=== PATIENT | male | born 1990 | race Caucasian/White ===

== ENCOUNTER 2017-01-24 14:46 | Emergency (ER) | payer OTHER ==
[2017-01-24 14:52] VITALS: BP 127/78; PULSE 75; RESP 16; TEMP 98.1; O2SAT 97
--- NOTE | 2017-01-24 15:12 | EDPHY ---
H & P Stated Complaint: Sent from for eval puncture to L wrist Time Seen by Provider: 01/24/17 15:11 HPI/ROS: CHIEF COMPLAINT: Left wrist laceration HISTORY OF PRESENT ILLNESS: The patient presents to the ED after he sustained a 1 cm laceration to his left wrist. The patient was initially seen in urgent care and referred to the ED secondary to ongoing bleeding. The patient denies any complaints of acute numbness or weakness. He denies any decreased range of motion in his left hand. The patient reports his tetanus shot is up today. REVIEW OF SYSTEMS: A comprehensive 10 point review of systems is otherwise negative aside from elements mentioned in the history of present illness. Source: Patient Exam Limitations: No limitations - Personal History Current Tetanus Diphtheria and Acellular Pertussis (TDAP): Yes - Medical/Surgical History Other PMH: neg - Family History Significant Family History: No pertinent family hx - Social History Smoking Status: Current every day smoker - Physical Exam Exam: General Appearance: Alert, no distress Skin: 1 cm laceration noted to the dorsal aspect of the left forearm Extremities: Normal range of motion noted throughout the left hand, Neurological: No sensory deficit appreciated in the left hand Constitutional: Initial Vital Signs Temperature (C) 36.7 C 01/24/17 14:48 Heart Rate 75 01/24/17 14:48 Respiratory Rate 16 01/24/17 14:48 Blood Pressure 127/78 H 01/24/17 14:48 O2 Sat (%) 97 01/24/17 14:48 O2 Delivery Mode Room Air Allergies/Adverse Reactions: Penicillins Allergy (Unknown, Verified 01/24/17 14:52) as child Home Medications: Medication Instructions Recorded Albuterol Sulfate [Ventolin Hfa] 8 gm IH 01/24/17 Medical Decision Making Procedures: Procedure: Laceration repair. Verbal consent was obtained from the patient. The 1 cm laceration on the left wrist was anesthetized using bupivacaine with epinephrine. The wound was irrigated per protocol, draped and explored to its base with a gloved finger. There were no deep structures involved. No tendon injury was identified. The wound was repaired with 4 0 Prolene sutures x2. The wound repair was simple. The procedure was performed by myself. Departure - Departure Disposition: Home, Routine, Self-Care Clinical Impression: Laceration of left forearm Condition: Good Instructions: Laceration (ED) Additional Instructions: 1. Please return to the emergency department for any numbness, weakness, redness, bleeding or other concerns. 2. Please return to the ED in 10 days for suture removal.
== END 2017-01-24 15:50 | disposition home or self-care (01) ==
PROC: 0HQEXZZ Repair Left Lower Arm Skin, External Approach (ICD-10-PCS; principal; 2017-01-24)
DX: S51.812A Laceration without foreign body of left forearm, initial encounter (principal); F17.200 Nicotine dependence, unspecified, uncomplicated; X58.XXXA Exposure to other specified factors, initial encounter